=== PATIENT | female | born 1990 | race Two or more races ===

== ENCOUNTER 2022-12-12 23:45 | Emergency (ER) | payer SELFPAY ==
[2022-12-13 00:13] VITALS: BP 115/71; PULSE 73; RESP 18; TEMP 97.6; BMI 31.4
[2022-12-13] MEDS ORDERED: ACETAMINOPHEN 1000 MG/100 ML BAG IVPB ONE (01:13)
[2022-12-13] MEDS ORDERED: ONDANSETRON 4 MG/2 ML VIAL IVPUSH ONE (01:13)
[2022-12-13] MEDS ORDERED: ONDANSETRON 4 MG/2 ML VIAL ONE (01:52)
[2022-12-13] MEDS ORDERED: ACETAMINOPHEN INJECTION 100 ML IVPB ONE (01:52)
[2022-12-13 02:20] LABS: BASO % 0.4 % (0-2.0); HEMATOCRIT 33.4 % (32.4-45.2); HEMOGLOBIN 11.3 GM/dL (10.7-15.3); LYMPH % 19.8 % (8-40); MCHC 33.9 g/dl (32.0-36.0); MEAN CELL VOLUME 82.6 fl (80-96); MEAN PLT VOLUME 9.9 fl (7.5-11.1); MONO % 8.3 % (3.8-10.2); NEUT % 70.5 % (42.8-82.8); PLATELET COUNT 209 10^3/uL (134-434); RBC 4.04 M/mm3 (3.60-5.2); RDW 16.7 % (11.6-15.6); WHITE BLOOD COUNT 9.2 K/mm3 (4.0-10.0)
[2022-12-13 02:23] LABS: EPI CELLS 23 /uL (0-25.1); HYALINE CASTS 1 /uL (0-3.1); URINE APPEARANCE CLEAR; URINE BACTERIA 250 /uL (0-1359); URINE BILIRUBIN NEGATIVE (NEGATIVE); URINE COLOR YELLOW; URINE GLUCOSE (UA) NEGATIVE (NEGATIVE); URINE KETONE NEGATIVE (NEGATIVE); URINE LEUK ESTERASE NEGATIVE (NEGATIVE); URINE NITRITE NEGATIVE (NEGATIVE); URINE PROTEIN 1+ (NEGATIVE); URINE RBC 11 /uL (0-23.9); URINE UROBILINOGEN 0.2 mg/dL (0.2-1.0); URINE WBC 15 /uL (0-25.8)
[2022-12-13 03:45] LABS: POTASSIUM 4.1 mmol/L (3.5-5.1)
[2022-12-13 03:48] LABS: ALBUMIN 3.6 g/dl (3.4-5.0); CALCIUM 8.6 mg/dL (8.5-10.1); MAGNESIUM 1.8 mg/dL (1.8-2.4)
[2022-12-13 03:51] LABS: CREATININE 0.7 mg/dL (0.55-1.3)
[2022-12-13 03:52] LABS: BILIRUBIN,TOTAL 0.2 mg/dL (0.2-1)
[2022-12-13] MEDS ORDERED: CEPHALEXIN MONOHYDRATE 500 MG CAPSULE (UD) PO ONE (04:13)
[2022-12-13] MEDS ORDERED: CEPHALEXIN MONOHYDRATE 500 MG CAPSULE (UD) ONE (04:15)
== END 2022-12-13 04:43 | disposition home or self-care (01) ==
LOC: JER 23:45 → EDBD 23:45 → JER 12-13 04:43
PROC: 3E033NZ Introduction of Analgesics, Hypnotics, Sedatives into Peripheral Vein, Percutaneous Approach (ICD-10-PCS; principal; 2022-12-13)
DX: O26.891 Other specified pregnancy related conditions, first trimester (principal); R10.30 Lower abdominal pain, unspecified; R11.0 Nausea; Z3A.08 8 weeks gestation of pregnancy
CPT/HCPCS: 36415; 76801-TC; 76856-TC; 80053; 81003; 83690; 83735; 85025; 87086; 99284-25